=== PATIENT | male | born 1985 | race Caucasian/White ===

== ENCOUNTER 2025-11-15 10:51 | Inpatient (IN) | payer OTHER ==
[~2025-11-15] VITALS: Ht 185.4 cm; Wt 68.0 kg
[2025-11-15] MEDS: IV NS 0.9% 1,000 ML BAG IV ONE ×2 (12:25→13:20)
[2025-11-15 12:28] LABS: PLATELET COUNT (AUTO) 276 K/uL (150-450); RED BLOOD CELL COUNT(AUTO) 5.19 MIL/uL (4.5-6.0); RED CELL DISTRIBUTION WIDTH 14.4 % (11.5-15.0); WHITE BLOOD COUNT (AUTO) 13.4 K/uL (4.3-11.0)
[2025-11-15 12:46] LABS: CALCIUM, SERUM 9.0 mg/dL (8.5-10.1); CREATININE 2.3 mg/dL (0.6-1.3); SODIUM SERUM 139 mmol/L (136-145); UREA NITROGEN, BLOOD 20 mg/dL (7-18)
[2025-11-15 12:51] LABS: ASPARTATE AMINOTRANSFERASE 50 U/L (15-37); TOTAL PROTEIN, SERUM 7.8 g/dL (6.4-8.2)
[2025-11-15 12:56] LABS: LACTIC ACID 5.4 mmol/L (0.4-2.0)
[2025-11-15] MEDS ORDERED: CEFTRIAXONE 1GM BAG (ER ONLY) 50 ML IV ONE (13:19)
[2025-11-15] MEDS: CEFTRIAXONE 1 G in IV D5W 50 ML IV ONE (13:20)
[2025-11-15 13:24] LABS: INR 1.45 (0.91-1.10)
[2025-11-15] MEDS: Calcium Gluconate 1GM/10ML 4.65 MEQ in IV NS 0.9% 100 ML IV ONE (13:49)
[2025-11-15] MEDS ORDERED: SODIUM BICARBONATE SYR 50 MEQ/50 ML DISP.SYRIN ONE (13:51)
[2025-11-15] MEDS ORDERED: INSULIN REGULAR, HUMAN 100 UNIT/ML 10 ML VIAL ONE (13:51)
[2025-11-15] MEDS ORDERED: DEXTROSE 50%-WATER 50 ML DISP.SYRIN ONE (13:51)
[2025-11-15] MEDS ORDERED: SODIUM ZIRCONIUM CYCLOSILICATE 10 GM POWD.PACK ONE (13:51)
[2025-11-15] MEDS ORDERED: ONDANSETRON HCL/PF 4 MG/2 ML VIAL IVP PRN (14:00)
[2025-11-15] MEDS ORDERED: DOSING PER PHARMACY-VANCOMYCIN IV XX PRN (14:00)
[2025-11-15] MEDS ORDERED: ALBUTEROL FS 2.5 MG/0.5 ML VIAL.NEB NEB PRN (14:00)
[2025-11-15] MEDS ORDERED: DOSING PER PHARMACY-CEFEPIME IVPB XX PRN (14:00)
[2025-11-15] MEDS ORDERED: MORPHINE SULFATE INJ 2 MG/ML DISP.SYRIN IV PRN (14:00)
[2025-11-15] MEDS ORDERED: hydrALAZINE HCL IV 20 MG VIAL IV PRN (14:00)
[2025-11-15] MEDS: SODIUM ZIRCONIUM CYCLOSILICATE 10 GM POWD.PACK PO ONE (14:10)
[2025-11-15] MEDS: INSULIN REGULAR, HUMAN 100 UNIT/ML 10 ML VIAL IV ONE (14:10)
[2025-11-15] MEDS: SODIUM BICARBONATE SYR 50 MEQ/50 ML DISP.SYRIN IV ONE (14:10)
[2025-11-15] MEDS: DEXTROSE 50%-WATER 50 ML DISP.SYRIN IV ONE (14:10)
[2025-11-15 14:56] LABS: COCCAINE, URINE NEGATIVE (NEGATIVE); OPIATE, URINE NEGATIVE (NEGATIVE)
[2025-11-15 14:58] LABS: AMPHETAMINE, URINE POSITIVE (NEGATIVE); BARBITURATE, URINE POSITIVE (NEGATIVE); BENZODIAZEPINE, URINE POSITIVE (NEGATIVE)
[2025-11-15 14:59] LABS: CANNABINOID, URINE POSITIVE (NEGATIVE)
[2025-11-15] MEDS: AZITHROMYCIN 500 MG in IV D5W 250 ML IV ONE (15:00)
[2025-11-15] MEDS ORDERED: FLAGYL/NS RTU 500 MG/100 ML PIGGYBACK IV ONE (15:00)
[2025-11-15] MEDS: SODIUM BICARBONATE SYR 100 MEQ in IV D5W 1,000 ML IV ONE (15:40)
[2025-11-15] MEDS: ACETAMINOPHEN 325 MG TABLET PO PRN (16:34)
[2025-11-15 17:09] VITALS: BP 123/68; TEMP 102; O2SAT 96
[2025-11-15] MEDS: METRONIDAZOLE 500MG/ NS 100ML 500 MG in PREMIX 1 EA IV ONE (17:26)
[2025-11-15] MEDS: IV NS 0.9% 1,000 ML IV SCH (17:34)
[2025-11-15] MEDS ORDERED: OLAN5TAB6 PO (17:55)
[2025-11-15] MEDS ORDERED: TADA20TA31 PO (17:55)
[2025-11-15] MEDS ORDERED: DIAZ10TA4 PO ×2 (17:55)
[2025-11-15] MEDS ORDERED: DEXT10TA18 PO (17:55)
[2025-11-15] MEDS ORDERED: DEXT30CA6 PO (17:55)
[2025-11-15] MEDS ORDERED: METH750T3 PO (17:55)
[2025-11-15] MEDS ORDERED: CLON0.1T PO (17:55)
[2025-11-15] MEDS ORDERED: CLON2TAB11 PO (17:55)
[2025-11-15] MEDS ORDERED: DIVA500T54 PO (17:55)
[2025-11-15] MEDS ORDERED: SILD100T PO (17:55)
[2025-11-15] MEDS ORDERED: CYCL10TA9 PO (17:55)
[2025-11-15] MEDS ORDERED: EMTR1TAB14 PO (17:55)
[2025-11-15] MEDS ORDERED: LOPE2CAP14 PO (17:55)
[2025-11-15] MEDS ORDERED: GABA600T12 PO (17:55)
[2025-11-15] MEDS ORDERED: VENL150T PO (17:55)
[2025-11-15] MEDS ORDERED: QUET100T PO (17:55)
[2025-11-15] MEDS ORDERED: MULT-31 PO (17:55)
[2025-11-15] MEDS ORDERED: PHEN32.46 PO (17:55)
[2025-11-15] MEDS ORDERED: OMEP20TA5 PO (17:55)
[2025-11-15] MEDS ORDERED: ONDA8TAB65 PO (17:55)
[2025-11-15] MEDS ORDERED: BUPR2TAB3 SL (17:55)
[2025-11-15] MEDS ORDERED: DOLU50TA PO (17:55)
[2025-11-15] MEDS ORDERED: LEVE500T20 PO (17:55)
[2025-11-15] MEDS ORDERED: IBUP-1957 PO (17:55)
[2025-11-15] MEDS ORDERED: TRAZ-257 PO (17:55)
[2025-11-15] MEDS ORDERED: FAMO20TA8 PO (17:55)
[2025-11-15] MEDS ORDERED: DOXY100C2 PO (17:55)
[2025-11-15] MEDS ORDERED: HYDR50TA61 PO (17:55)
[2025-11-15] MEDS: VANCOMYCIN 1 GM in IV D5W 250ml IV ONE (18:10)
[2025-11-15] MEDS: LACTULOSE 10 G/15 ML UDC (PYXIS) PO STA (19:34)
[2025-11-15 19:53] VITALS: O2SAT 90; O2SAT 96
[2025-11-15] MEDS: ALBUTEROL FS 2.5 MG/3 ML VIAL.NEB NEB SCH (19:53)
[2025-11-15 20:00] VITALS: BP 107/61; TEMP 98.2; O2SAT 95
[2025-11-15 20:03] VITALS: O2SAT 95
[2025-11-15] MEDS: HEPARIN SODIUM, PORCINE 5000 UNITS/1 ML VIAL SQ SCH (20:30)
[2025-11-15] MEDS: CEFEPIME 2 GM in IV D5W 100 ML IV SCH (20:30)
[2025-11-16] VITALS (13 sets, daily range): BP systolic 102–137; BP diastolic 68–79; TEMP 97.5–99; O2SAT 91–100
[2025-11-16 07:01] LABS: PLATELET COUNT (AUTO) 167 K/uL (150-450); RED BLOOD CELL COUNT(AUTO) 4.53 MIL/uL (4.5-6.0); RED CELL DISTRIBUTION WIDTH 14.5 % (11.5-15.0); WHITE BLOOD COUNT (AUTO) 9.0 K/uL (4.3-11.0)
[2025-11-16 07:12] LABS: CREATINE KINASE, TOTAL 798.0 U/L (39-308)
[2025-11-16 07:16] LABS: ASPARTATE AMINOTRANSFERASE 35.0 U/L (15-37); CALCIUM, SERUM 7.8 mg/dL (8.5-10.1); CREATININE 1.2 mg/dL (0.6-1.3); PHOSPHORUS 1.6 mg/dL (2.5-4.9); SODIUM SERUM 140.0 mmol/L (136-145); TOTAL PROTEIN, SERUM 5.8 g/dL (6.4-8.2); UREA NITROGEN, BLOOD 14.0 mg/dL (7-18)
[2025-11-16] MEDS: POLYETHYLENE GLYCOL 3350 17 GM POWD.PACK PO SCH (09:07)
[2025-11-16] MEDS: DOCUSATE SODIUM LIQ 100 MG/10 ML UDC PO SCH (09:07)
[2025-11-16] MEDS: VANCOMYCIN HCL 1.25 GM in IV D5W 250 ML IV SCH (10:09)
[2025-11-16] MEDS: K PHOS NEUTRAL 250 MG TABLET PO ONE (13:36)
[2025-11-16] MEDS ORDERED: VANCOMYCIN HCL 1.25 GM in IV D5W 250 ML IV SCH (18:00)
[2025-11-17] VITALS (8 sets, daily range): BP systolic 113–127; BP diastolic 60–73; TEMP 97.7–100.8; O2SAT 95–98
[2025-11-17 08:29] LABS: CALCIUM, SERUM 8.4 mg/dL (8.5-10.1); CREATININE 1.0 mg/dL (0.6-1.3); PHOSPHORUS 3.0 mg/dL (2.5-4.9); SODIUM SERUM 139.0 mmol/L (136-145); UREA NITROGEN, BLOOD 9.0 mg/dL (7-18)
[2025-11-17 08:48] LABS: APPEARANCE,URINE CLEAR (CLEAR); BLOOD, URINE NEGATIVE Ery/uL (NEGATIVE); EOSINOPHIL,URINE None Seen; LEUKOCYTE ESTERASE ,URINE NEGATIVE (NEGATIVE); NITRITE, URINE NEGATIVE (NEGATIVE); UGLUCOSE NEGATIVE (NEGATIVE)
[2025-11-17 08:52] LABS: CREATINE KINASE, TOTAL 470.0 U/L (39-308)
[2025-11-17 09:01] LABS: CREATININE, URINE 22.8 MG/DL (30.0-125.0); URINE SODIUM, RANDOM 87.0 mmol/l (40-220); URINE TOTAL PROTEIN 16.4 mg/dL (0-11.9)
[2025-11-17] MEDS ORDERED: AMOX-430 PO (10:17)
[2025-11-17] MEDS ORDERED: OLANZAPINE ZYDIS 5 MG TAB.RAPDIS PO PRN (10:30)
[2025-11-17] MEDS: EMTRICITABINE/TENOFOVIR 1 TAB PO SCH (10:46)
[2025-11-17] MEDS: LEVETIRACETAM (250 MG) 250 MG TABLET PO SCH (10:47)
[2025-11-17] MEDS: VENLAFAXINE XR 150 MG CAP.SR.24H PO SCH (10:47)
[2025-11-17] MEDS: DIVALPROEX SODIUM 500 MG TABLET.DR PO SCH (10:48)
[2025-11-17] MEDS ORDERED: DIAZEPAM 5 MG TABLET PO PRN (11:00)
[2025-11-17] MEDS ORDERED: BUPRENORPHINE HCL 2 MG TAB.SUBL SL SCH (13:00)
[2025-11-17] MEDS ORDERED: GABAPENTIN 300 MG CAPSULE PO SCH (13:00)
[2025-11-17] MEDS ORDERED: QUETIAPINE FUMARATE 100 MG TABLET PO SCH (22:00)
== END 2025-11-17 13:00 | DRG 871 ==
LOC: ER 11:43 → TELE 15:29
PROVIDERS: ADMIT Internal Medicine; ATTEND Internal Medicine
DX: A41.9 Sepsis, unspecified organism (principal); J18.9 Pneumonia, unspecified organism; M62.82 Rhabdomyolysis; K56.7 Ileus, unspecified; E87.5 Hyperkalemia; N17.9 Acute kidney failure, unspecified; R65.20 Severe sepsis without septic shock; Z79.01 Long term (current) use of anticoagulants; F19.10 Other psychoactive substance abuse, uncomplicated; Z79.51 Long term (current) use of inhaled steroids; Z79.899 Other long term (current) drug therapy; K29.70 Gastritis, unspecified, without bleeding; M89.8X9 Other specified disorders of bone, unspecified site; E86.9 Volume depletion, unspecified; N20.0 Calculus of kidney; Y95 Nosocomial condition
CPT/HCPCS: 36415; 71046; 71250-TC; 80048-TC; 80053-TC; 80076-TC; 82550-TC; 82553; 82570-TC; 82962-TC; 83605-TC; 83690-TC; 83735-TC; 83880; 84100-TC; 84300-TC; 84484-TC; 85025-TC; 85378-TC; 85730-TC; 87040-TC; 94760-TC; 94761-TC; 94799-TC; A4216; A4223; G0378; J0456; J0612; J0692; J0696; J1644; J1815; J3373; J3490; J7030; J7040; J7060; J7070